=== PATIENT | female | born 1945 | race Caucasian/White ===

== ENCOUNTER 2019-12-21 10:15 | Outpatient (RCR) | payer MEDICARE, BC ==
[~2019-12-21 10:15] MED LIST: AMLODIPINE5 MG PO; FASTIN30 MG PO; GLUCOSAMINE SULFATE PO; HYDROCHLOROTHIA25 MG PO; LISINOPRIL/HCTZ1 TA1 PO; OMEGA 3 120 MG-1 CAP PO; PRILOSEC 20MG20 MG PO; Turmeric; VITAMIN D32000 IU PO
== END 2020-01-04 07:57 | disposition home or self-care (01) ==
LOC: WSC 10:15
DX: M17.11 Unilateral primary osteoarthritis, right knee (principal); E66.01 Morbid (severe) obesity due to excess calories; Z68.41 Body mass index [BMI] 40.0-44.9, adult